=== PATIENT | female | born 1940 | race Caucasian/White ===

== ENCOUNTER 2017-10-12 08:40 | Day surgery (SDC) | payer MEDICARE, OTHER ==
[2017-10-12] MEDS ORDERED: LIDOCAINE HCL 1% 20ML VIAL (Pyxis) INJ ONE (10:06)
[2017-10-12] MEDS ORDERED: HEPARIN SODIUM 1,000 UNIT/1ML VIAL IV ONE (10:14)
[2017-10-12] MEDS ORDERED: NITROGLYCERIN 50MCG/ML 10ML VIAL (CATH LAB) IV ONE (10:14)
[2017-10-12] MEDS ORDERED: NICARDIPINE 100MCG/ML 10ML VIAL (CATH LAB) IV ONE (10:14)
[2017-10-12] MEDS ORDERED: ASPIRIN/SOD BICARB/CITRIC ACID 324MG TAB EFF ONE (10:24)
[2017-10-12] MEDS ORDERED: FENTANYL CITRATE/PF 50MCG/ML 2ML VIAL ONE (10:35)
[2017-10-12] MEDS ORDERED: MIDAZOLAM HCL 2 MG/2 ML VIAL ONE (10:35)
[2017-10-12] MEDS ORDERED: IODIXANOL 320MG/ML 100 ML BOTTLE IV ONE (10:42)
[2017-10-12] MEDS ORDERED: COR3 PO (10:50)
[2017-10-12] MEDS ORDERED: CLON0.1T PO (10:50)
[2017-10-12] MEDS ORDERED: OMEP20CA10 PO (10:50)
[2017-10-12] MEDS ORDERED: MIR25 PO (10:50)
[2017-10-12] MEDS ORDERED: ESCI10TA PO (10:50)
[2017-10-12] MEDS ORDERED: ASPI-1159 PO (10:50)
[2017-10-12] MEDS ORDERED: ACETAMINOPHEN 325MG TABLET PO PRN (16:30)
[2017-10-12] MEDS ORDERED: ONDANSETRON HCL 4MG/2ML VIAL IV PRN (16:30)
[2017-10-12] MEDS ORDERED: ATROPINE SULFATE 1MG/10ML SYR IV PRN (16:30)
[2017-10-12] MEDS ORDERED: MORPHINE SULFATE 4 MG/ML CPJ (NOT FOR IM USE) IV PRN (16:30)
== END 2017-10-12 19:00 | disposition home or self-care (01) ==
LOC: CCL 08:40
PROVIDERS: ATTEND Specialist
DX: I25.10 Atherosclerotic heart disease of native coronary artery without angina pectoris (principal); I11.9 Hypertensive heart disease without heart failure; K21.9 Gastro-esophageal reflux disease without esophagitis; E78.00 Pure hypercholesterolemia, unspecified; F32.9 Major depressive disorder, single episode, unspecified; F41.9 Anxiety disorder, unspecified; Z88.2 Allergy status to sulfonamides; Z96.649 Presence of unspecified artificial hip joint
CPT/HCPCS: 93458; 99152; 99153; C1769; C1887; C1893; J1644; J2250; J3010; J3490; Q9967

== ENCOUNTER → 2018-04-08 | Outpatient (CLI) | payer MEDICARE, OTHER ==
[~2018-04-08] MED LIST: ASPI-1159 PO; CLON0.1T PO; COR3 PO; ESCI10TA PO; MIR25 PO; OMEP20CA10 PO
== END | disposition home or self-care (01) ==
LOC: PF 12:59
PROVIDERS: ATTEND Specialist
DX: R06.02 Shortness of breath (principal)
CPT/HCPCS: 94060; 94727; 94729

== ENCOUNTER 2018-09-21 06:21 | Day surgery (SDC) | payer MEDICARE, OTHER ==
[~2018-09-21] VITALS: Ht 160 cm; Wt 86.2 kg
[2018-09-21] MEDS ORDERED: TIOT4MIS3 IH (07:46)
[2018-09-21] MEDS ORDERED: EZET10TA26 MT (07:46)
[2018-09-21] MEDS ORDERED: DILT60TA35 MT (07:46)
[2018-09-21] MEDS ORDERED: AMLO5TAB88 MT (07:46)
[2018-09-21] MEDS ORDERED: PRED10TA23 MT (07:46)
[2018-09-21] MEDS ORDERED: FENTANYL CITRATE/PF 50MCG/ML 2ML VIAL ONE (08:27)
[2018-09-21] MEDS ORDERED: MIDAZOLAM HCL 2 MG/2 ML VIAL ONE (08:27)
[2018-09-21] MEDS ORDERED: LIDOCAINE HCL 1% 20ML VIAL (Pyxis) INJ ONE (08:28)
[2018-09-21] MEDS ORDERED: IODIXANOL 320MG/ML 100 ML BOTTLE IV ONE (08:28)
[2018-09-21] MEDS ORDERED: ATROPINE SULFATE 0.1MG/ML 10ML DISP.SYRIN ONE (08:36)
[2018-09-21] MEDS ORDERED: IOHEXOL-300 100 ML BOTTLE ONE (09:05)
[2018-09-21] MEDS ORDERED: ONDANSETRON HCL 4MG/2ML INJ IV PRN (09:30)
[2018-09-21] MEDS ORDERED: ACETAMINOPHEN 325MG TABLET PO PRN (09:30)
[2018-09-21] MEDS ORDERED: HEPARIN SODIUM 1,000 UNIT/1ML VIAL IV ONE (15:17)
== END 2018-09-21 14:00 | disposition home or self-care (01) ==
LOC: CCL 06:21
PROVIDERS: ATTEND Specialist
DX: I65.22 Occlusion and stenosis of left carotid artery (principal); E78.5 Hyperlipidemia, unspecified; I25.10 Atherosclerotic heart disease of native coronary artery without angina pectoris; I11.9 Hypertensive heart disease without heart failure
CPT/HCPCS: 36224; C1760; J1644; J2250; J3010; J3490; Q9967; C1769; C1893; J0461